=== PATIENT | male | born 1970 | race Caucasian/White ===

== ENCOUNTER 2016-04-17 16:49 | Emergency (ER) | payer SELFPAY ==
[~2016-04-17] VITALS: Ht 188 cm; Wt 95.0 kg
[2016-04-17 16:59] VITALS: BP 143/96; PULSE 90; RESP 14; O2SAT 98
[2016-04-17] MEDS ORDERED: 0.9% Sodium Chloride 1,000 ML IV ONE (17:58)
[2016-04-17] MEDS ORDERED: Ondansetron 2 mg/mL 2 mL Inj IVPUSH ONE (18:00)
[2016-04-17] MEDS ORDERED: HYDROmorphone 0.5 mg/0.5 mL iSecure Syringe IVPUSH PRN (18:00)
[2016-04-17 18:02] VITALS: BP 139/94; PULSE 77; O2SAT 96
--- NOTE | 2016-04-17 18:13 | ED.REPORT ---
HPI-General Illness Date of Service Apr 17, 2016 ED Provider: Oliver Tomlin MD This is a 46 year old male presenting to the emergency department from urgent care complaining of abdominal pressure that began 4 weeks ago. Prilosec has not provided relief. He repeatedly denies abdominal pain and describes the sensation as "pressure" that is worse after eating. Lipase elevated at urgent care, sent to ED, and told to increase Prilosec dose. Denies nausea, vomiting, constipation, diarrhea, or shortness of breath. Denies EtOH consumption. Nursing Notes Stated Complaint: DR SENT HIM HERE Chief Complaint: Male Abdominal Pain Nursing Notes Reviewed: Yes Allergies: Coded Allergies: codeine (Verified Allergy, Severe, Anaphylaxis, 04/17/16) No Active Prescriptions or Reported Meds General Time Seen by MD: 17:58 Chief Complaint Abdominal pain Hx Obtained From: Patient Arrived By: Walk-in Sudden in Onset?: Yes Onset Occurred: Just prior to arrival Symptom Duration: Since onset Severity: Current: Mild Pertinent Negative: Pt denies other symptoms Recent Healthcare: No recent doctor visit, No recent hospitalization Similar Sx Previous: No Past Medical History Past Medical History Denies Past Surgical History Denies Social History Alcohol Use: "Social" Ambulatory Status Independent Review of Systems Full Review of Systems Constitutional: Denies: Chills, Fever Respiratory: Denies: Non-productive cough, Shortness of breath Cardiovascular: Denies: Chest pain GI: Reports: Abdominal pain, Denies: Constipation, Diarrhea, Nausea, Vomiting Male: Denies Dysuria Neurologic: Denies: Headache Complete sys rev & neg: except as marked. Physical Exam Vital Signs Vital Signs Date Time Temp Pulse Resp B/P Pulse Ox O2 Delivery O2 Flow Rate FiO2 04/17/16 19:51 51 123/86 98 Room Air 04/17/16 19:37 51 123/86 98 Room Air 04/17/16 18:02 77 139/94 96 Room Air 04/17/16 16:59 36.4 90 14 143/96 98 Room Air Initial VS: Reviewed General/Constitutional: Well-developed, Well-nourished Head / Eyes: Atraumatic, Normocephalic, PERRL ENT: Mucous membranes moist, Conjunctiva normal, No scleral icterus Neck: Supple, Non-tender, Full range of motion Respiratory: Breath sounds normal, Clear to auscultation, No respiratory distress Cardiovascular: Regular rate & rhythm, Heart sounds normal, Intact distal pulses Extremities: Vascular intact, Neuro intact, No swelling, No tenderness Skin: Warm, Dry, No cyanosis Neurologic: Alert, Oriented, Nonfocal Psychiatric: Mood/affect normal, Behavior normal, Normal thought content Abdomen: Atraumatic, Soft, Non-tender, McBurney's non-tender, No guarding, No rebound, BS normoactive Interpretation & Diagnostics Lab Results Interpretation Result Diagram: 04/17/16181404/17/161814 Test 04/17/16 18:15 White Blood Count 7.2th/mm3 (3.8-10.1) Red Blood Count 5.36mil/mm3 (4.40-5.80) Hemoglobin 15.0g/dL (13.8-17.2) Hematocrit 44.0% (41.0-50.0) Mean Corpuscular Volume 82.1fL (81-100) Mean Corpuscular Hemoglobin 28.0pg (27.0-35.0) Mean Corpuscular Hemoglobin Concent 34.1% (32.0-37.0) Red Cell Distribution Width 13.3% (12.3-15.4) Platelet Count 214bil/L (150-400) Neutrophils (%) (Auto) 55.7% (40-74) Lymphocytes (%) (Auto) 34.4% (14-46) Monocytes (%) (Auto) 6.8% (4-12) Eosinophils (%) (Auto) 2.4% (0-5) Basophils (%) (Auto) 0.4% (0-3) Sodium Level 139mEq/L (134-144) Potassium Level 4.1mEq/L (3.5-5.2) Chloride Level 100mEq/L (97-108) Carbon Dioxide Level 28mmol/L (18-29) Blood Urea Nitrogen 8mg/dL (6-24) Creatinine 0.68mg/dL (0.76-1.27) Estimat Glomerular Filtration Rate 133mL/min (>59) Glucose Level 114mg/dL (60-99) Calcium Level 9.4mg/dL (8.5-10.1) Magnesium Level 1.8mg/dL (1.6-2.6) Total Bilirubin 0.3mg/dL (0.0-1.2) Aspartate Amino Transf (AST/SGOT) 21U/L (0-50) Alanine Aminotransferase (ALT/SGPT) 30U/L (0-44) Alkaline Phosphatase 77U/L (25-150) Total Protein 7.8g/dL (6.4-8.4) Albumin 4.4g/dL (3.4-5.0) Lipase 196U/L (13-60) Re-Eval/Medical Decision Med Decision/Clinical Course This is a 46 year old male presenting to the emergency department from urgent care complaining of abdominal pressure that began 4 weeks ago. Prilosec has not provided relief. He repeatedly denies abdominal pain and describes the sensation as "pressure" that is worse after eating. Lipase elevated at urgent care, sent to ED, and told to increase Prilosec dose. Denies nausea, vomiting, constipation, diarrhea, or shortness of breath. Denies EtOH consumption. Here in emergency department patient is calm, comfortable and in NAD. Abdominal examination is completely benign without any tenderness, guarding, rigidity or rebound. Patient is afebrile with stable vital signs. CBC unremarkable CMP unremarkable lipase elevated at 196 Serial abdominal examinations remained completely benign. While lipase is mildly elevated his presentation is unconvincing for acute pancreatitis. Aspects of his history are suggestive of GERD/gastritis and I feel that it is not unreasonable to increase his Prilosec dose as previously directed at urgent care. I do not feel that imaging studies are immediately indicated. I would like him to follow up with a physician for repeat lipase and further evaluation of his gastric "fullness". The patient does not have a primary care physician and therefore I have referred her to gastroenterology. Follow-up and return precautions were reviewed in detail he was discharged in good condition. Time of Eval: 19:45 Re-Evaluation/Progress Note: Discussed lab results and plan for d/c, all questions addressed. Counseled Regarding: Diagnosis, Lab results, Need for follow-up, When/why to return to ED Discharge & Departure Primary Impression: Elevated lipase Additional Impression: Abdominal bloating Disposition: Home Discharge Condition All VS Reviewed: Yes Condition: Stable Patient Instructions: Acute Abdominal Pain (ED) Additional Instructions: Thank you for seeking care at emergency room. It is difficult for us to make definitive diagnoses in the ED but you had an elevated lipase. You should follow-up with your primary doctor in the next week for further evaluation. Follow up with the public relations assistant. Our primary goal today in the ED was to evaluate you for any life-threatening conditions. Your evaluation was reassuring. You will be discharged with a prescription for Prilosec, take as prescribed. You should return to the ED immediately if you develop worsening pain, fevers, vomiting, cough, shortness of breath, chest pain, lightheadedness, weakness or any other concerning signs or symptoms. Thank you for letting us partake in your care today. Referrals: [facility] (PCP) Jules Nichole MD Scribe Attestation Portions of this note were transcribed by Karie Caruso. I, Dr. Tomlin personally performed the history, physical exam and medical decision-making; I reviewed and confirmed the accuracy of the information in the transcribed note. Signed by: denise Jimenez. 04/17/2016, 23:30. Oliver Tomlin MD Apr 17, 2016 18:12 KARIE CARUSO Apr 17, 2016 18:15
[2016-04-17 18:22] LABS: BASOPHILS % (AUTO) 0.4 % (0-3); EOSINOPHILS % (AUTO) 2.4 % (0-5); MONOCYTES % (AUTO) 6.8 % (4-12); Mean Corpuscular Volume 82.1 fL (81-100); NEUTROPHILS % (AUTO) 55.7 % (40-74); Platelet Count 214 bil/L (150-400)
[2016-04-17 18:49] LABS: Magnesium 1.8 mg/dL (1.6-2.6)
[2016-04-17 19:37] VITALS: BP 123/86; PULSE 51; O2SAT 98
[2016-04-17 19:51] VITALS: BP 123/86; PULSE 51; O2SAT 98
== END 2016-04-17 19:52 | disposition home or self-care (01) ==
LOC: SED 16:49
DX: R74.8 Abnormal levels of other serum enzymes (principal); R14.0 Abdominal distension (gaseous); Z88.5 Allergy status to narcotic agent
CPT/HCPCS: 36415; 80053; 83690; 83735; 85025; 96360; 99284; J7030